=== PATIENT | male | born 1940 | race Caucasian/White ===

== ENCOUNTER 2019-09-01 20:59 | Inpatient (IN) | payer MEDICARE, BC ==
[~2019-09-01] VITALS: Ht 172.7 cm; Wt 64.1 kg
[2019-09-01 22:14] LABS: BASO % 0 % (0-3); EOS # 0.2 x10^3/uL (0.0-0.7); EOS % 1 % (0-3); HEMATOCRIT 40.1 % (39.0-53.0); HEMOGLOBIN 12.9 g/dL (13.0-17.5); LYMPH # 0.8 x10^3/uL (1.0-4.8); LYMPH % 5 % (24-48); MEAN CORPUSCULAR HEMOGLOBIN 29 pg (25-35); MEAN CORPUSCULAR HGB CONC 32 g/dL (31-37); MEAN CORPUSCULAR VOLUME 90 fL (79-100); MONO # 1.5 x10^3/uL (0.0-1.1); MONO % 10 % (0-9); NEUT % 84 % (31-73); PLATELET COUNT 354 x10^3/uL (140-400); RED BLOOD COUNT 4.44 x10^6/uL (4.30-5.70); RED CELL DISTRIBUTION WIDTH 16.6 % (11.5-14.5); WHITE BLOOD COUNT 15.5 x10^3/uL (4.0-11.0)
--- NOTE | 2019-09-01 22:26 | PHYS DOC ---
Past History Past Medical History: Cancer, Renal Failure, Other Additional Past Medical Histor: RECTAL CA Past Surgical History: Other Additional Past Surgical Histo: FOR RECTAL CA, ILEOSTOMY IN PLACE Alcohol Use: Sober Adult General Chief Complaint Chief Complaint: SHORTNESS OF BREATH [facility] HPI 79-year-old male presents with shortness of breath and decreased exercise tolerance. The patient is feeling "winded" for about the last 2 weeks. He assumed he was just coming down with some kind of illness and that it would get better. He continues to get very fatigued with exertion. If he walks 50 feet he is very winded. He denies any chest pain or diaphoresis. He now has some decreased appetite and he is concerned about this. He's lost a little bit of weight. The only medication he is on his Flomax. He denies fever or chills. Review of Systems Review of Systems Constitutional: .Denies fever or chills [] Eyes: Denies change in visual acuity, redness, or eye pain [] HENT: Denies nasal congestion or sore throat [] Respiratory: shortness of breath [] Cardiovascular: No additional information not addressed in HPI [] GI: Denies abdominal pain, nausea, vomiting, bloody stools or diarrhea [] : Denies dysuria or hematuria [] Musculoskeletal: Denies back pain or joint pain [] Integument: Denies rash or skin lesions [] Neurologic: Denies headache, focal weakness or sensory changes [] Endocrine: Denies polyuria or polydipsia [] All other systems were reviewed and found to be within normal limits, except as documented in this note. Allergies Allergies Allergies Coded Allergies Type Severity Reaction Last Updated Verified Penicillins Allergy Unknown 09/01/19 Yes Physical Exam Physical Exam Constitutional: Well developed, well nourished, no acute distress, non-toxic appearance. [] HENT: Heart appearing. Normocephalic, atraumatic, bilateral external ears normal, oropharynx moist, no oral exudates, nose normal. [] Eyes: PERRLA, EOMI, conjunctiva normal, no discharge. [] Neck: Normal range of motion, no tenderness, supple, no stridor. [] Cardiovascular:Heart rate regular rhythm, no murmur [] Lungs & Thorax: Bilateral breath sounds diminished but clear to auscultation [] Abdomen: Bowel sounds normal, soft, no tenderness, no masses, no pulsatile masses. [] Skin: Warm, dry, no erythema, no rash. [] Back: No tenderness, no CVA tenderness. [] Extremities: No tenderness, no cyanosis, no clubbing, ROM intact, no edema. [] Neurologic: Alert and oriented X 3, normal motor function, normal sensory function, no focal deficits noted. [] Psychologic: Affect normal, judgement normal, mood normal. [] Current Patient Data Vital Signs Vital Signs Date Time Temp Pulse Resp B/P (MAP) Pulse Ox O2 Delivery O2 Flow Rate FiO2 09/01/19 21:35 98.2 56 20 118/52 (74) 100 Room Air Lab Results Laboratory Tests Test 09/01/19 22:00 White Blood Count 15.5 x10^3/uL (4.0-11.0) H Red Blood Count 4.44 x10^6/uL (4.30-5.70) Hemoglobin 12.9 g/dL (13.0-17.5) L Hematocrit 40.1 % (39.0-53.0) Mean Corpuscular Volume 90 fL (79-100) Mean Corpuscular Hemoglobin 29 pg (25-35) Mean Corpuscular Hemoglobin Concent 32 g/dL (31-37) Red Cell Distribution Width 16.6 % (11.5-14.5) H Platelet Count 354 x10^3/uL (140-400) Neutrophils (%) (Auto) 84 % (31-73) H Lymphocytes (%) (Auto) 5 % (24-48) L Monocytes (%) (Auto) 10 % (0-9) H Eosinophils (%) (Auto) 1 % (0-3) Basophils (%) (Auto) 0 % (0-3) Neutrophils # (Auto) 13.0 x10^3uL (1.8-7.7) H Lymphocytes # (Auto) 0.8 x10^3/uL (1.0-4.8) L Monocytes # (Auto) 1.5 x10^3/uL (0.0-1.1) H Eosinophils # (Auto) 0.2 x10^3/uL (0.0-0.7) Basophils # (Auto) 0.0 x10^3/uL (0.0-0.2) Platelet Estimate Pending EKG EKG Regular rhythm, rate 53, some P waves, prolonged NV interval, no ST elevations or depressions.[] Radiology/Procedures Radiology/Procedures [] Impressions: Exam: Chest one view INDICATION: Shortness of breath TECHNIQUE: Frontal view of the chest Comparisons: None FINDINGS: The cardiomediastinal silhouette and pulmonary vessels are within normal limits. Patchy left basilar airspace disease. No pleural effusion. IMPRESSION: Patchy left basilar airspace disease, may represent atelectasis or developing consolidation. Electronically signed by: Jan Perez MD (09/01/2019 10:44 PM) [id number] DICTATED AND SIGNED BY: JAN PEREZ MD DATE: 09/01/192243 CC: SANDHYA JULIAN DO; AMANDA SMALL MD ~ Course & Med Decision Making Course & Med Decision Making Pertinent Labs and Imaging studies reviewed. (See chart for details) The patient's chest x-ray suggestive of pneumonia. His proBNP is over 5000. This could be fluid overload or pneumonia. He has an elevated anion gap but a low CO2. I will treat him with azithromycin and Rocephin. The patient's chart says he is allergic penicillin, but the patient and his family deny this. He has had adverse reaction to aspirin in the past. I spoke with Dr. Hernandez and he has accepted the patient for admission. [] Dragon Disclaimer Dragon Disclaimer This electronic medical record was generated, in whole or in part, using a voice recognition dictation system. Departure Departure: Impression: Primary Impression: Pneumonia Additional Impressions: CHF (congestive heart failure) CKD (chronic kidney disease) stage 4, GFR 15-29 ml/min Disposition: ADMITTED INPATIENT Admitting Physician: Fletcher Hernandez Condition: STABLE Referrals: AMANDA SMALL MD (PCP) Problem Qualifiers Primary Impression: Pneumonia Pneumonia type: due to unspecified organism Laterality: left Lung location: lower lobe of lung Qualified Codes: J18.9 - Pneumonia, unspecified organism Additional Impressions: CHF (congestive heart failure) Heart failure type: systolic Heart failure chronicity: acute Qualified Codes: I50.21 - Acute systolic (congestive) heart failure SANDHYA JULIAN DO Sep 01, 2019 22:26
[2019-09-01 22:35] LABS: ALBUMIN 3.5 g/dL (3.4-5.0); CALCIUM 6.2 mg/dL (8.5-10.1); GFR 11.2; POTASSIUM 3.5 mmol/L (3.5-5.1); TOTAL BILIRUBIN 0.2 mg/dL (0.2-1.0); TOTAL PROTEIN 7.1 g/dL (6.4-8.2)
[2019-09-01 22:43] LABS: % BANDS 10 % (0-9); % EOS 2 % (0-5); % LYMPHS 7 % (24-48); % METAS 2 % (0-0); % MONOS 13 % (0-10); % SEGS 66 % (35-66)
[2019-09-01 22:44] LABS: PLT ESTIMATE ADEQUATE (ADEQUATE)
[2019-09-01 22:45] LABS: ANISOCYTOSIS SLIGHT; OVALOCYTES FEW; POLYCHROMASIA SLIGHT; TOXIC GRANULATION MOD
--- NOTE | 2019-09-01 22:47 | RAD ---
Exam: Chest one view INDICATION: Shortness of breath TECHNIQUE: Frontal view of the chest Comparisons: None FINDINGS: The cardiomediastinal silhouette and pulmonary vessels are within normal limits. Patchy left basilar airspace disease. No pleural effusion. IMPRESSION: Patchy left basilar airspace disease, may represent atelectasis or developing consolidation. Electronically signed by: Jan Sheppard MD (09/01/2019 10:44 PM) [id number]
[2019-09-01] MEDS ORDERED: AZITHROMYCIN 500 MG in IV NORMAL SALINE 250ML 250 ML IV ONE (23:00)
[2019-09-01] MEDS ORDERED: cefTRIAXone SODIUM 1 GM VIAL ONE (23:15)
[2019-09-01] MEDS ORDERED: IV NORMAL SALINE 50ML 50 ML ONE (23:15)
[2019-09-01] MEDS ORDERED: AZITHROMYCIN 500 MG VIAL. IV ONE (23:52)
[2019-09-01] MEDS ORDERED: IV NORMAL SALINE 250ML 250 ML ONE (23:52)
[2019-09-02] VITALS (7 sets, daily range): BP systolic 111–141; BP diastolic 54–72
[2019-09-02] MEDS ORDERED: ONDANSETRON PF 4 MG/2 ML VIAL. IV PRN
[2019-09-02] MEDS ORDERED: TAMS0.4C97 PO (02:36)
[2019-09-02 04:09] LABS: BILIRUBIN,URINE NEG (NEG); CLARITY,URINE HAZY; COLOR,URINE YELLOW; GLUCOSE,URINE NEG (NEG)
[2019-09-02 04:10] LABS: NITRITE,URINE NEG (NEG); UROBILINOGEN,URINE 0.2 mg/dL (0.2 mg/dL)
--- NOTE | 2019-09-02 06:26 | EKG ---
[address] [address] Test Date: 2019-09-01 Test Time: 22:19:08 Pat Name: LANRE VALIENTE Department: Room: Gender: M Databases Computer Consultant: : 1940 Requested By: SANDHYA JULIAN Order Number: [id number] Reading MD: Measurements Intervals [place] Rate: 53 P: MD: QRS: -47 QRSD: 114 T: 125 QT: 458 QTc: 432 Interpretive Statements IRREGULAR RHYTHM, NO P-WAVE FOUND ABNORMAL LEFT AXIS DEVIATION LEFT ANTERIOR FASCICULAR BLOCK LVH WITH REPOLARIZATION ABNORMALITY ABNORMAL ECG RI6.01 No previous ECG available for comparison
[2019-09-02 08:13] LABS: BASO % 0 % (0-3); EOS # 0.2 x10^3/uL (0.0-0.7); EOS % 1 % (0-3); HEMATOCRIT 39.2 % (39.0-53.0); HEMOGLOBIN 12.6 g/dL (13.0-17.5); LYMPH # 0.8 x10^3/uL (1.0-4.8); LYMPH % 6 % (24-48); MEAN CORPUSCULAR HEMOGLOBIN 29 pg (25-35); MEAN CORPUSCULAR HGB CONC 32 g/dL (31-37); MEAN CORPUSCULAR VOLUME 90 fL (79-100); MONO # 1.2 x10^3/uL (0.0-1.1); MONO % 9 % (0-9); NEUT # 11.6 x10^3uL (1.8-7.7); NEUT % 84 % (31-73); PLATELET COUNT 355 x10^3/uL (140-400); RED BLOOD COUNT 4.37 x10^6/uL (4.30-5.70); RED CELL DISTRIBUTION WIDTH 16.1 % (11.5-14.5); WHITE BLOOD COUNT 13.9 x10^3/uL (4.0-11.0)
[2019-09-02 08:30] LABS: ALBUMIN 3.1 g/dL (3.4-5.0); ALBUMIN/GLOBULIN RATIO 0.8 (1.0-1.7); CALCIUM 6.3 mg/dL (8.5-10.1); CREATININE 4.7 mg/dL (0.7-1.3); POTASSIUM 3.2 mmol/L (3.5-5.1); TOTAL BILIRUBIN 0.4 mg/dL (0.2-1.0)
[2019-09-02] MEDS: IV NORMAL SALINE 1,000ML 1,000 ML IV SCH ×2 (11:38→20:51)
[2019-09-02] MEDS ORDERED: POTASSIUM CHLORIDE 20 MEQ TABLET.ER. PO ONE (11:40)
--- NOTE | 2019-09-02 18:24 | HP ---
ADMIT DATE: 09/01/2019 HISTORY OF PRESENT ILLNESS: The patient is an 79-year-old male patient who came to the Emergency Room with a complaint of shortness of breath and decreased exercise tolerance. The patient is feeling winded for about the last 2 weeks, assuming that he has just coming down with some kind of illness and that it would get better. He continues to get very fatigued with exertion. He walks 50 feet, he is very winded. He denies any chest pain or diaphoresis. He now has some decreased appetite and he is concerned about this. He has lost a little bit of weight. The only he is on is Flomax. He denies any fever or chills. He was evaluated in the Emergency Room and his chest x-ray showed he has patchy left basilar airspace disease with no pleural effusion. His EKG showed that he was in sinus rhythm with a heart rate of 53 beats with some P waves, prolonged OR interval, no ST segment elevation. His lab work showed that his white cell count was high at 15,500; however, his chemistry showed that he has high anion gap acidosis with a BUN of 68, creatinine 5, his estimated GFR was 11 mL per minute, his glucose 101, calcium was low at 6.2. He was admitted and was treated for community-acquired pneumonia as well as probably acute on chronic kidney injury. PAST MEDICAL HISTORY: Significant for chronic kidney disease, benign prostatic hypertrophy, colon cancer diagnosed in 2006 for which he underwent total colectomy and ileostomy. PAST SURGICAL HISTORY: Significant for total colectomy and ileostomy, cholecystectomy, colonoscopy, bilateral cataract extraction, transurethral resection of the prostate. ALLERGIES: HE IS ALLERGIC TO PENICILLIN. MEDICATIONS: He is currently on Flomax and tramadol. FAMILY HISTORY: His father at the age of 87 because of colon cancer. His mother at 86, the cause of is unknown. SOCIAL HISTORY: He is and lives with his . He quit smoking years ago. He does not drink alcohol or use recreational drugs. 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 REVIEW OF SYSTEMS: The patient denied any blurring of vision. He has bilateral cataract extraction, but denied any glaucoma or macular degeneration. He has bilateral sensorineural deafness and he has bilateral hearing aid. Denied any nosebleeds, stuffy nose or postnasal drip. Denied any sore throat, sore tongue, toothache, hoarseness of voice or difficulty swallowing. He did say that he lost unintentionally about 6-8 pounds. His appetite is poor. He denied any nausea or vomiting. Denied any hematemesis, melena or hematochezia. Denied any dysuria, frequency or hematuria. Denied any chest pain. Did complain of shortness of breath, but denied any orthopnea or paroxysmal nocturnal dyspnea. He has cough with whitish sputum. Denied any dizziness, lightheadedness or vertigo. PHYSICAL EXAMINATION: GENERAL: On arrival to the Emergency Room, the patient was clearly tachypneic, but no pallor, jaundice, cyanosis or thyromegaly. No jugular venous distention. No lower limb edema. VITAL SIGNS: His heart rate was 56, blood pressure 118/52, temperature was 98.2, respiratory rate was 20 and oxygen saturation was 100% on room air. HEAD, EYES, EARS, NOSE AND THROAT: Showed normocephalic, atraumatic. NECK: Supple. HEART: Showed normal first and second heart sounds. No gallop or murmur. CHEST: Clear to auscultation. No crepitation or rhonchi. ABDOMEN: Distended, soft, nontender. NEUROLOGIC: He was hard of hearing, but otherwise all cranial nerves intact. EXTREMITIES: He moves extremities without difficulty. LABORATORY DATA: His lab work on arrival showed that his white cell count was 15,500, hemoglobin 12.9, hematocrit 40, MCV 90 and platelet count 354,000 with normal manual differential. His chemistry showed a serum sodium 139, potassium 3.5, chloride 106, bicarbonate 12, anion gap of 21, BUN of 68, creatinine 5, estimated GFR was 11 mL per minute. His glucose was 101, calcium was 6.2. Lactic acid was 1.4. Total bilirubin, AST, ALT were normal. Alkaline phosphatase slightly elevated. His beta natriuretic peptide was 6443. Total protein was 7.1, albumin was 3.5. His urinalysis showed the urine was yellow, hazy with a pH of 6, specific gravity of 1.030. There was large amount of protein. The urine was negative for glucose, ketones, blood, nitrite, bilirubin and trace of leukocyte esterase. His chest x-ray showed the patient has patchy left basilar airspace disease, no pleural effusion. ASSESSMENT AND PLAN: The patient was admitted with obviously shortness of breath and treated with antibiotic for community-acquired pneumonia. He has chronic kidney disease, stage 4, probably more than that, he was started on intravenous fluid as well as Zithromax and ceftriaxone. LÓPEZ SILVA MD DR: KRISTAL/ronald JOB#: [id number] / [id number]
[2019-09-02] MEDS: SODIUM BICARBONATE 650 MG TABLET PO SCH (20:51)
[2019-09-02] MEDS ORDERED: AZITHROMYCIN 250 MG TABLET. PO SCH (21:00)
--- NOTE | 2019-09-02 21:06 | PN ---
DATE: 09/02/2019 SUBJECTIVE: The patient is continued to be complaining of shortness of breath, but denied any orthopnea or paroxysmal nocturnal dyspnea. He is clearly acidotic. His bicarbonate is only 12 and anion gap is 20. Despite the IV fluids he received, he continues to be acidotic and I had a lengthy discussion with him and his family probably he has end-stage renal disease and he probably needs to be dialyzed. He has high anion gap metabolic acidosis. He has lost weight. He has poor appetite. He is very weak and tired. PLAN: My plan is to start him on sodium bicarbonate. We will repeat his lab work again tomorrow and check also serum phosphorus. I have explained to him and family the options of peritoneal dialysis and hemodialysis and obviously, he has to make a decision soon as he has been suffering this for months according to his family. LÓPEZ SILVA MD DR: KRISTAL/ronald JOB#: [id number] / [id number]
[2019-09-03 01:35] VITALS: BP 105/56
[2019-09-03 04:40] VITALS: BP 106/54
[2019-09-03 06:05] VITALS: BP 112/52
[2019-09-03 07:19] LABS: ALBUMIN 2.6 g/dL (3.4-5.0); ALBUMIN/GLOBULIN RATIO 0.7 (1.0-1.7); CREATININE 4.1 mg/dL (0.7-1.3); GFR 14.1; PHOSPHORUS 5.5 mg/dL (2.6-4.7); TOTAL BILIRUBIN 0.2 mg/dL (0.2-1.0); TOTAL PROTEIN 6.1 g/dL (6.4-8.2)
[2019-09-03 07:29] LABS: CALCIUM 5.7 mg/dL (8.5-10.1)
[2019-09-03] MEDS ORDERED: POTASSIUM CHLORIDE 20 MEQ TABLET.ER. PO ONE ×3 (08:15→15:00)
[2019-09-03] MEDS: CALCIUM CARBONATE 500 MG TABLET PO SCH ×3 (08:38→18:43)
[2019-09-03] MEDS: SODIUM BICARBONATE 650 MG TABLET PO SCH ×2 (08:38→13:05)
[2019-09-03 10:48] VITALS: BP 113/50
[2019-09-03 12:29] LABS: CALCIUM 6.1 mg/dL (8.5-10.1); CREATININE 3.8 mg/dL (0.7-1.3); GFR 15.4; POTASSIUM 3.2 mmol/L (3.5-5.1)
[2019-09-03] MEDS: IV NORMAL SALINE 1,000ML 1,000 ML IV SCH ×2 (12:51→15:34)
[2019-09-03 14:46] VITALS: BP 109/51
--- NOTE | 2019-09-03 21:49 | DS ---
DATE OF DISCHARGE: 09/03/2019 HOSPITAL COURSE: The patient is an 79-year-old male patient who presented to the Emergency Room with complaint of shortness of breath, decreased exercise intolerance. The patient is feeling winded for about last 2 weeks, assuming that he is just coming down with some kind of illness that it could get better. He continues to be very fatigued with exertion. He walks 50 feet and he is very winded. He denies any chest pain or diaphoresis. He also had decreased appetite, has lost weight. The only medication he is on is Flomax. He is known to have chronic kidney disease, but has not seen his automation machine operator for a long time. In the Emergency Room, he was found to have leukocytosis and his BUN was 68, his creatinine was 5 and estimated GFR only 11. He has high anion gap acidosis. Chest x-ray showed that he has bilateral lung infiltrate and was admitted with community-acquired pneumonia as well as acute on chronic kidney injury, was started on IV ceftriaxone and Zithromax as well as IV fluid. His lab work; his BUN came down from 68 to 56, his creatinine is coming down also from 5 to 3.8 and therefore given that the same complaint has been going on for almost 6 months according to his family, it seems that he is uremic with severe metabolic acidosis, we started on oral sodium bicarbonate and calcium carbonate for hypocalcemia and I have discussed with him the options available for advanced kidney disease and that he probably requires either hemodialysis or peritoneal dialysis and he and his agreed that peritoneal dialysis is probably the way to go and therefore, [facility] to consult the Nephrology as well as the surgical team for placement of peritoneal dialysis and perhaps temporary hemodialysis catheter to start dialysis temporarily and then to start training on peritoneal dialysis. PHYSICAL EXAMINATION: GENERAL: When I saw him this afternoon, he looked well and was clearly in no apparent respiratory distress. He is slightly pale, not jaundiced or cyanosed, no thyromegaly, no jugular venous distention, no limb edema. VITAL SIGNS: His heart rate was 62, blood pressure was 109/51, temperature was 97.4, respiratory rate was 20, and oxygen saturation was 99%. HEAD, EYES, EARS, NOSE AND THROAT: Showed normocephalic, atraumatic. NECK: Supple. HEART: Showed normal first and second heart sounds with no gallop or murmur. CHEST: Clear to auscultation. No crepitation or rhonchi. ABDOMEN: Distended, soft, nontender. NEUROLOGIC: He was awake, alert, responding appropriately. All cranial nerves are intact. He moves extremities without difficulty. His intake over the last 24 hours was 2350, output was 600. LABORATORY DATA: This morning showed a white cell count of 13,900, hemoglobin 12.6, hematocrit 39, MCV 90 and platelet count 355,000. Serum sodium was 138, potassium 3.2, chloride 107, bicarbonate 13, anion gap of 18, BUN 56, creatinine was 3.8, estimated GFR was 15 mL per minute. His glucose was 94, calcium was 6.1, phosphorus was 5.5. Total bilirubin, AST, ALT, alkaline phosphatase were normal. Total protein was 6.1, albumin was 2.6. Urinalysis was essentially unremarkable except for proteinuria. FINAL DISCHARGE DIAGNOSES: Acute on chronic kidney injury and high anion gap metabolic acidosis. The patient is clinically uremic, has weight loss ____ appetite, generalized weakness. LÓPEZ SILVA MD DR: KRISTAL/ronald JOB#: [id number] / [id number]
== END 2019-09-03 19:45 | disposition short-term general hospital (02) | DRG 871 ==
LOC: ER 20:59 → ICU 23:10
PROVIDERS: ADMIT Internal Medicine; ATTEND Internal Medicine
DX: A41.9 Sepsis, unspecified organism (principal); J18.9 Pneumonia, unspecified organism; N17.9 Acute kidney failure, unspecified; E87.2 Acidosis; N18.4 Chronic kidney disease, stage 4 (severe); I50.9 Heart failure, unspecified; N40.0 Benign prostatic hyperplasia without lower urinary tract symptoms; E83.51 Hypocalcemia; Z98.42 Cataract extraction status, left eye; Z98.41 Cataract extraction status, right eye; Z85.048 Personal history of other malignant neoplasm of rectum, rectosigmoid junction, and anus; Z80.0 Family history of malignant neoplasm of digestive organs; Z93.2 Ileostomy status; Z87.891 Personal history of nicotine dependence; Z88.0 Allergy status to penicillin
CPT/HCPCS: 36415; 71045; 80048; 80053; 81003; 83605; 83880; 84100; 84484; 85007; 85025; 87040; 93005; 97163; J0456; J0696; J7050; 97116; 97530; 99285-25; J7030

== ENCOUNTER → 2019-09-10 | Outpatient (CLI) | payer MEDICARE, BC ==
[2019-09-03 14:46] VITALS: BP 109/51
[~2019-09-10] MED LIST: TAMS0.4C97 PO
[2019-09-10 16:01] LABS: CALCIUM 7.2 mg/dL (8.5-10.1); CREATININE 3.5 mg/dL (0.7-1.3); GFR 16.9; POTASSIUM 3.4 mmol/L (3.5-5.1)
== END ==
LOC: SPEC 15:37
PROVIDERS: ATTEND Internal Medicine
DX: E87.6 Hypokalemia (principal); E83.42 Hypomagnesemia
CPT/HCPCS: 36415; 80048; 83735

== ENCOUNTER → 2019-09-12 | Outpatient (CLI) | payer MEDICARE, BC ==
[2019-09-03 14:46] VITALS: BP 109/51
[2019-09-12 10:26] LABS: CALCIUM 7.6 mg/dL (8.5-10.1); CREATININE 3.8 mg/dL (0.7-1.3); GFR 15.4; POTASSIUM 3.8 mmol/L (3.5-5.1)
== END ==
LOC: SPEC 09:49
PROVIDERS: ATTEND Internal Medicine
DX: E87.6 Hypokalemia (principal); E83.42 Hypomagnesemia; N19 Unspecified kidney failure
CPT/HCPCS: 36415; 80048; 83735

== ENCOUNTER → 2019-09-15 | Outpatient (CLI) | payer MEDICARE, BC ==
[2019-09-03 14:46] VITALS: BP 109/51
[2019-09-15 10:15] LABS: CALCIUM 7.5 mg/dL (8.5-10.1); CREATININE 4.2 mg/dL (0.7-1.3); GFR 13.7; MAGNESIUM 2.1 mg/dL (1.8-2.4); POTASSIUM 4.9 mmol/L (3.5-5.1)
== END | disposition home or self-care (01) ==
LOC: SPEC 09:55
PROVIDERS: ATTEND Internal Medicine
DX: I10 Essential (primary) hypertension (principal); E87.6 Hypokalemia; E83.51 Hypocalcemia; E83.42 Hypomagnesemia
CPT/HCPCS: 36415; 80048; 83735

== ENCOUNTER → 2019-09-17 | Outpatient (CLI) | payer MEDICARE, BC ==
[2019-09-03 14:46] VITALS: BP 109/51
[2019-09-17 09:39] LABS: CALCIUM 6.9 mg/dL (8.5-10.1); CREATININE 4.2 mg/dL (0.7-1.3); GFR 13.7; POTASSIUM 3.8 mmol/L (3.5-5.1)
== END | disposition home or self-care (01) ==
LOC: SPEC 09:21
PROVIDERS: ATTEND Internal Medicine
DX: N17.9 Acute kidney failure, unspecified (principal); E83.51 Hypocalcemia; E87.6 Hypokalemia
CPT/HCPCS: 36415; 80048; 83735

== ENCOUNTER → 2019-09-19 | Outpatient (CLI) | payer MEDICARE, BC ==
[2019-09-03 14:46] VITALS: BP 109/51
[2019-09-19 10:04] LABS: CALCIUM 6.7 mg/dL (8.5-10.1); GFR 14.5; MAGNESIUM 2.1 mg/dL (1.8-2.4); POTASSIUM 3.8 mmol/L (3.5-5.1)
== END | disposition home or self-care (01) ==
LOC: SPEC 09:44
PROVIDERS: ATTEND Internal Medicine
DX: N17.9 Acute kidney failure, unspecified (principal); E83.51 Hypocalcemia; E87.6 Hypokalemia
CPT/HCPCS: 36415; 80048; 83735

== ENCOUNTER 2019-11-22 13:32 | Emergency (ER) | payer MEDICARE, BC ==
[~2019-11-22] VITALS: Ht 172.7 cm; Wt 76.0 kg
[2019-11-22 14:11] LABS: BASO % 0 % (0-3); EOS % 0 % (0-3); HEMATOCRIT 35.1 % (39.0-53.0); HEMOGLOBIN 11.6 g/dL (13.0-17.5); LYMPH # 0.6 x10^3/uL (1.0-4.8); LYMPH % 7 % (24-48); MEAN CORPUSCULAR HEMOGLOBIN 30 pg (25-35); MEAN CORPUSCULAR HGB CONC 33 g/dL (31-37); MEAN CORPUSCULAR VOLUME 90 fL (79-100); MONO # 0.9 x10^3/uL (0.0-1.1); MONO % 10 % (0-9); NEUT # 7.7 x10^3uL (1.8-7.7); NEUT % 83 % (31-73); PLATELET COUNT 313 x10^3/uL (140-400); RED CELL DISTRIBUTION WIDTH 14.3 % (11.5-14.5); WHITE BLOOD COUNT 9.2 x10^3/uL (4.0-11.0)
[2019-11-22 14:17] LABS: ANION GAP 12 (6-14); BLOOD UREA NITROGEN 43 mg/dL (8-26); BUN/CREATININE RATIO 12 (6-20); CALCIUM 8.1 mg/dL (8.5-10.1); CARBON DIOXIDE 28 mmol/L (21-32); CHLORIDE 100 mmol/L (98-107); CREATININE 3.5 mg/dL (0.7-1.3); GFR 16.9; GLUCOSE 123 mg/dL (70-99); POTASSIUM 3.4 mmol/L (3.5-5.1); SODIUM 140 mmol/L (136-145)
--- NOTE | 2019-11-22 14:24 | RAD ---
CHEST AP ONLY History: Shortness of air Comparison: 09/01/2019 Findings: AP portable view of the chest is submitted. There is a small left pleural effusion, also very small right pleural effusion. There is bibasilar airspace opacity adjacent to the effusions, left greater than right. No pneumothorax is identified. Catheter projecting over the right inferior neck is believed to be external to patient. Pericardial cardiac silhouette is somewhat enlarged although unchanged. Impression: 1. There are left greater than right pleural effusions with adjacent bibasilar airspace opacity which may be due to edema/atelectasis although infiltrates not excluded. Constellation of findings could be due to left ventricular failure. Electronically signed by: Angel Pritchett MD (11/22/2019 2:21 PM) [id number]
[2019-11-22 14:29] LABS: ALBUMIN 3.3 g/dL (3.4-5.0); ALBUMIN/GLOBULIN RATIO 0.9 (1.0-1.7); ALK PHOS 116 U/L (46-116); ALT (SGPT) 40 U/L (16-63); AST (SGOT) 23 U/L (15-37); TOTAL BILIRUBIN 0.8 mg/dL (0.2-1.0); TOTAL PROTEIN 7.1 g/dL (6.4-8.2)
--- NOTE | 2019-11-22 15:24 | PHYS DOC ---
Past History Past Medical History: Cancer, CHF, Pneumonia, Renal Failure, Other Additional Past Medical Histor: RECTAL CA Past Surgical History: Other Additional Past Surgical Histo: FOR RECTAL CA, ILEOSTOMY IN PLACE Alcohol Use: Sober General Adult EDM: Chief Complaint: MULTIPLE COMPLAINTS HPI: HPI: Patient is an 79-year-old male with multiple medical problems including chronic renal failure who presents to the emergency department today with a several day history of progressive lightheadedness and feeling washed out he states the last time he felt like this he was in renal failure. Patient also states that he has been having shortness of breath dyspnea on exertion he is not making much urine. [] Review of Systems: Review of Systems: Constitutional: Denies fever or chills Eyes: Denies change in visual acuity HENT: Denies nasal congestion or sore throat Respiratory: Denies cough or shortness of breath Cardiovascular: Denies chest pain or edema GI: Denies abdominal pain, nausea, vomiting, bloody stools or diarrhea : D states he does not make much urine Musculoskeletal: Denies back pain or joint pain Integument: Denies rash Neurologic: Denies headache, focal weakness or sensory changes Endocrine: Denies polyuria or polydipsia Lymphatic: Denies swollen glands Psychiatric: Reports anxiety Heart Score: Risk Factors: Risk Factors: DM, Current or recent (<one month) smoker, HTN, HLP, family history of CAD, obesity. Risk Scores: Score 0 - 3: 2.5% MACE over next 6 weeks - Discharge Home Score 4 - 6: 20.3% MACE over next 6 weeks - Admit for Clinical Observation Score 7 - 10: 72.7% MACE over next 6 weeks - Early Invasive Strategies Allergies: Allergies: Allergies Coded Allergies Type Severity Reaction Last Updated Verified Penicillins Allergy Unknown 09/01/19 Yes Physical Exam: PE: Constitutional: Well developed, well nourished, no acute distress, non-toxic appearance. [] HENT: Normocephalic, atraumatic, bilateral external ears normal, oropharynx moist, no oral exudates, nose normal. [] Eyes: PERRLA, EOMI, conjunctiva normal, no discharge. [] Neck: Normal range of motion, no tenderness, supple, no stridor. [] Cardiovascular:Heart rate regular rhythm, no murmur [] Lungs & Thorax: Bilateral breath sounds clear to auscultation [] Abdomen: Bowel sounds normal, soft, no tenderness, no masses, no pulsatile masses. [] Skin: Warm, dry, no erythema, no rash. [] Back: No tenderness, no CVA tenderness. [] Extremities: No tenderness, no cyanosis, no clubbing, ROM intact, no edema. [] Neurologic: Alert and oriented X 3, normal motor function, normal sensory function, no focal deficits noted. [] Psychologic: Affect normal, judgement normal, mood normal. [] Current Patient Data: Labs: Laboratory Tests Test 11/22/19 13:50 White Blood Count 9.2 x10^3/uL (4.0-11.0) Red Blood Count 3.90 x10^6/uL (4.30-5.70) L Hemoglobin 11.6 g/dL (13.0-17.5) L Hematocrit 35.1 % (39.0-53.0) L Mean Corpuscular Volume 90 fL (79-100) Mean Corpuscular Hemoglobin 30 pg (25-35) Mean Corpuscular Hemoglobin Concent 33 g/dL (31-37) Red Cell Distribution Width 14.3 % (11.5-14.5) Platelet Count 313 x10^3/uL (140-400) Neutrophils (%) (Auto) 83 % (31-73) H Lymphocytes (%) (Auto) 7 % (24-48) L Monocytes (%) (Auto) 10 % (0-9) H Eosinophils (%) (Auto) 0 % (0-3) Basophils (%) (Auto) 0 % (0-3) Neutrophils # (Auto) 7.7 x10^3uL (1.8-7.7) Lymphocytes # (Auto) 0.6 x10^3/uL (1.0-4.8) L Monocytes # (Auto) 0.9 x10^3/uL (0.0-1.1) Eosinophils # (Auto) 0.0 x10^3/uL (0.0-0.7) Basophils # (Auto) 0.0 x10^3/uL (0.0-0.2) Sodium Level 140 mmol/L (136-145) Potassium Level 3.4 mmol/L (3.5-5.1) L Chloride Level 100 mmol/L (98-107) Carbon Dioxide Level 28 mmol/L (21-32) Anion Gap 12 (6-14) Blood Urea Nitrogen 43 mg/dL (8-26) H Creatinine 3.5 mg/dL (0.7-1.3) H Estimated GFR (Cockcroft-Gault) 16.9 BUN/Creatinine Ratio 12 (6-20) Glucose Level 123 mg/dL (70-99) H Calcium Level 8.1 mg/dL (8.5-10.1) L Total Bilirubin 0.8 mg/dL (0.2-1.0) Aspartate Amino Transferase (AST) 23 U/L (15-37) Alanine Aminotransferase (ALT) 40 U/L (16-63) Alkaline Phosphatase 116 U/L (46-116) Troponin I Quantitative 0.128 ng/mL (0-0.055) H AO-Pgj-P-Type Natriuretic Peptide > 99599 pg/mL (0-449) H Total Protein 7.1 g/dL (6.4-8.2) Albumin 3.3 g/dL (3.4-5.0) L Albumin/Globulin Ratio 0.9 (1.0-1.7) L Vital Signs: Vital Signs Date Time Temp Pulse Resp B/P (MAP) Pulse Ox O2 Delivery O2 Flow Rate FiO2 11/22/19 13:32 97.5 63 30 145/81 (102) 96 Room Air EKG: EKG: EKG: Normal sinus rhythm rate of [address]-T changes there is some repull abnormalities [] Radiology/Procedures: Radiology/Procedures: [] Impressions: PROCEDURE: CHEST AP ONLY CHEST AP ONLY History: Shortness of air Comparison: 09/01/2019 Findings: AP portable view of the chest is submitted. There is a small left pleural effusion, also very small right pleural effusion. There is bibasilar airspace opacity adjacent to the effusions, left greater than right. No pneumothorax is identified. Catheter projecting over the right inferior neck is believed to be external to patient. Pericardial cardiac silhouette is somewhat enlarged although unchanged. Impression: 1. There are left greater than right pleural effusions with adjacent bibasilar airspace opacity which may be due to edema/atelectasis although infiltrates not excluded. Constellation of findings could be due to left ventricular failure. Course & Med Decision Making: Course & Med Decision Making Pertinent Labs and Imaging studies reviewed. (See chart for details) [] Dragon Disclaimer: Dragon Disclaimer: This electronic medical record was generated, in whole or in part, using a voice recognition dictation system. Departure Departure: Impression: Primary Impression: Congestive heart failure Qualified Codes: I50.43 - Acute on chronic combined systolic (congestive) and diastolic (congestive) heart failure Additional Impression: Chronic renal failure, stage 4 (severe) Disposition: HOME/RESIDENCE PRIOR TO ADM Condition: STABLE Referrals: AMANDA SMALL MD (PCP) KRYSTIN BINGHAM DO November 22, 2019 15:24
[2019-11-22 15:25] LABS: CLARITY,URINE CLEAR; COLOR,URINE STRAW; GLUCOSE,URINE NEG (NEG)
[2019-11-22 15:26] LABS: BILIRUBIN,URINE NEG (NEG); UROBILINOGEN,URINE 0.2 mg/dL (0.2 mg/dL)
[2019-11-22 15:27] LABS: NITRITE,URINE NEG (NEG)
[2019-11-22 15:31] LABS: BACTERIA,URINE 0 /HPF (0-FEW); WBC,URINE 0 /HPF (0-4)
[2019-11-22] MEDS ORDERED: FUROSEMIDE 40 MG/4 ML VIAL IVP ONE (15:45)
[2019-11-22 17:08] VITALS: BP 165/65
--- NOTE | 2019-11-24 07:11 | EKG ---
[address] [address] Test Date: 2019-11-22 Test Time: 13:38:51 Pat Name: LANRE VALIENTE Department: Room: Gender: Telehealth Nurse Educator: : 1940 Requested By: KRYSTIN BINGHAM Order Number: [id number] Reading MD: Manny Ribera MD Measurements Intervals [place] Rate: P: TX: QRS: QRSD: T: QT: QTc: Interpretive Statements PROBABLE ATRIAL FIBRILLATION Electronically Signed On 11-24-2019 9:22:19 CDT by Manny Ribera MD
== END 2019-11-22 18:15 | disposition short-term general hospital (02) ==
LOC: ER 13:32
DX: I50.43 Acute on chronic combined systolic (congestive) and diastolic (congestive) heart failure (principal); N18.4 Chronic kidney disease, stage 4 (severe); Z88.0 Allergy status to penicillin
CPT/HCPCS: 36415; 71045; 80053; 81001; 83880; 84484; 85025; 93005; 96374; 99285; J1940

== ENCOUNTER → 2021-04-22 | Outpatient (CLI) | payer MEDICARE, BC ==
--- NOTE | 2021-04-22 17:39 | RAD ---
EXAM: Bilateral knees, 4 views. HISTORY: Pain. Fall. COMPARISON: None. FINDINGS: 4 views of both knees are obtained. There is a mildly displaced fracture of the mid left pa tella. There is associated moderate left lipohemarthrosis. There is mild left greater than right medi al compartment joint space narrowing. There is no suspicious osseous lesion. There are vascular calci fications. IMPRESSION: 1. Mildly displaced left patellar fracture with moderate lipohemarthrosis. 2. 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 Electronically signed by: Kylie Wang MD (04/22/2021 5:36 PM) [facility]
== END ==
LOC: DXRAD 16:54
PROVIDERS: ATTEND Internal Medicine
DX: S82.092A Other fracture of left patella, initial encounter for closed fracture (principal); M17.0 Bilateral primary osteoarthritis of knee; W19.XXXA Unspecified fall, initial encounter; Y93.89 Activity, other specified; Y92.89 Other specified places as the place of occurrence of the external cause; Y99.8 Other external cause status
CPT/HCPCS: 73564-50

== ENCOUNTER 2021-06-01 11:38 | Emergency (ER) | payer MEDICARE, BC ==
[~2021-06-01] VITALS: Ht 172.7 cm; Wt 76.0 kg
--- NOTE | 2021-06-01 11:40 | PHYS DOC ---
Past History Past Medical History: Cancer, CHF, Pneumonia, Renal Failure, Other Additional Past Medical Histor: RECTAL CA Past Surgical History: Other Additional Past Surgical Histo: FOR RECTAL CA, ILEOSTOMY IN PLACE Alcohol Use: Sober General Adult HPI: HPI: Patient is an 81-year-old male brought in by EMS from [facility] for hypotension and drowsiness. He normally has relatively low blood pressure at baseline, usually in the high 80s to 90 systolic. At [facility], he reportedly had systolic blood pressures in the 60s. EMS corroborates this. They brought him here and could not establish IV access. IV access was established shortly after arrival. The patient has pinpoint pupils, it seems drowsy and is confused. The patient is initially unable to provide much of a history. The patient is given Narcan shortly after arrival, and he woke up quickly and immediately. His blood pressure improved. He is given fluid boluses. His blood pressure improved and stabilized significantly. The patient reports that he had been having some left knee pain, since he was hospitalized for a left patella fracture. I spoke with the patient's nurse at his care facility, and she reports that he just arrived back there yesterday after 2 PM. He had been receiving some hydrocodone while hospitalized, in addition to tramadol. He takes tramadol at baseline. She has noticed that he was sleepy and seemed less responsive while taking both of these medicines. He did not receive any opioids this morning, the it is possible he received some last night or yesterday prior to his arrival. She reports that he got up and ate a small amount of breakfast, had some relative hypotension, as per usual. He took his regular dose of midodrine, and then went to dialysis. Upon awakening, the patient has no complaints other than feeling cold. He denies chest pain, dyspnea, dizziness, headache, nausea vomiting, abdominal pain. He does report some left knee pain, but this is unchanged and no worse t mcbride usual for him. Review of Systems: Review of Systems: Constitutional: Denies fever or chills Eyes: Denies change in visual acuity HENT: Denies nasal congestion or sore throat Respiratory: Denies cough or shortness of breath Cardiovascular: Denies chest pain or edema GI: Denies abdominal pain, nausea, vomiting Musculoskeletal: Denies back pain. Reports unchanged left anterior knee pain from previous injury. Integument: Denies rash Neurologic: Denies headache, focal weakness or sensory changes. He was briefly altered/confused, but this is resolved after Narcan administration. Endocrine: Denies polyuria or polydipsia Lymphatic: Denies swollen glands Psychiatric: No reported acute mood changes. Allergies: Allergies: Allergies Coded Allergies Type Severity Reaction Last Updated Verified Penicillins Allergy Unknown 09/01/19 Yes Physical Exam: PE: Constitutional: Initially, he was quite sleepy, but ill-appearing. He is otherwise is well developed, well nourished, no acute distress, non-toxic appearance. He is chronically ill-appearing. HENT: Normocephalic, atraumatic, oropharynx is patent and clear. Mucous membranes slightly tacky. Eyes: Pulls are initially pinpoint but equal. No scleral icterus. No conjunctival injection. No drainage. Neck: Normal range of motion, no tenderness, supple, no stridor. Trachea midline. No meningismus. Cardiovascular:Heart rate regular rhythm, +2 radial pulses bilaterally Lungs & Thorax: Bilateral breath sounds clear to auscultation [] Abdomen: Bowel sounds normal, soft, no tenderness, no masses, no pulsatile masses. [] Skin: Warm, dry, no erythema, no rash. [] Extremities: No calf tenderness. No lower extremity edema. Left lower extremity is in a splint. Palpation of the anterior knee and calf does not elicit any tenderness. Neurologic: Initially, he is very drowsy/sleepy, awakens to voice and pain, localizes to pain, gag reflex intact, will not follow most commands. He is not oriented at all. After Narcan administration, he is awake, alert, oriented to person, place, situation. No facial asymmetry. Speech is clear and fluent. He moves all 4 extremities equally. Sensation is grossly normal. Psychologic: Affect normal, judgement normal, mood normal. [] EKG: EKG: [] Radiology/Procedures: Radiology/Procedures: IMAGING REPORT Signed PATIENT: LANRE VALIENTE ACCOUNT: [id number] : 1940 LOCATION: ER AGE: 81 SEX: M EXAM STATUS: REG ER ORD. PHYSICIAN: JONO ANGEL DO REASON: ams PROCEDURE: PORTABLE CHEST 1V EXAM: CHEST ONE VIEW. HISTORY: Altered mental status. COMPARISON: 11/22/2019. FINDINGS: A frontal view of the chest is obtained. An airspace opacity in the left base may reflect a small infiltrate or scarring. There is no pneumothorax or pleural effusion. The heart is not enlarged. IMPRESSION: 1. Small infiltrate versus scarring in the left costophrenic angle. Electronically signed by: Jennifer Laws MD (06/01/2021 12:23 PM) [id number] DICTATED AND SIGNED BY: BENJAMÍN LAWS MD DATE: 06/01/21 1222 CC: JONO ANGEL DO; AMANDA SMALL MD ~MTH0 0 IMAGING REPORT Signed PATIENT: LANRE VALIENTE ACCOUNT: [id number] : 1940 LOCATION: ER AGE: 81 SEX: M EXAM STATUS: REG ER ORD. PHYSICIAN: JONO ANGEL DO REASON: ams PROCEDURE: CT HEAD WO CONTRAST EXAM: Head CT without contrast. HISTORY: Altered mental status. TECHNIQUE: Computed tomographic images of the head were obtained without contrast. *One or more of the following individualized dose reduction techniques were utilized for this examination: 1. Automated exposure control. 2. Adjustment of the mA and/or kV according to patient size. 3. Use of iterative reconstruction technique. COMPARISON: None. FINDINGS: There is no acute or subacute extra-axial or intraparenchymal hemorrhage. There is no mass effect or midline shift. There is no hydrocephalus. There is cerebral atrophy. There are areas of hypodensity within the cerebral white matter, likely due to chronic small vessel disease. 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 There is evidence of lens surgery. There is a tiny left maxillary sinus mucous retention cyst. The mastoid air cells are clear. There is no suspicious calvarial lesion. IMPRESSION: 1. No acute intracranial finding. MRI is more sensitive for acute infarction. 2. Extensive cerebral white matter changes, likely due to chronic small vessel disease. 3. 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 4. Cerebral volume loss. Electronically signed by: Kylie Hercules MD (06/01/2021 12:12 PM) [id number] DICTATED AND SIGNED BY: KYLIE HERCULES MD DATE: 06/01/21 1209 CC: JONO ANGEL DO; AMANDA SMALL MD ~MTH0 0 Heart Score: C/O Chest Pain: No Risk Factors: Risk Factors: DM, Current or recent (<one month) smoker, HTN, HLP, family history of CAD, obesity. Risk Scores: Score 0 - 3: 2.5% MACE over next 6 weeks - Discharge Home Score 4 - 6: 20.3% MACE over next 6 weeks - Admit for Clinical Observation Score 7 - 10: 72.7% MACE over next 6 weeks - Early Invasive Strategies Course & Med Decision Making: Course & Med Decision Making Pertinent Labs and Imaging studies reviewed. (See chart for details) Patient is given a total of 2 doses of Narcan. He is given IV fluids. Blood pressure remained stable. He did have a few episodes of relative hypotension, but this was his baseline. I personally spoke with his caregiver at his care facility, and I discussed all of the findings here today. I had initially wanted the patient to return to [facility] to complete dialysis, as was scheduled this morning. The nursing staff here contacted [facility], and they reported that they would not allow him to come back for dialysis but rather reported that he could wait until Sunday. I personally contacted [facility] and spoke with 2 different nurses there, and they repeatedly told me that they would not allow him to return there for dialysis because they were closing the dialysis center 2:40 PM to allow staff to go home. Nurse reported that they would not be open tomorrow. I then asked that the drum sander offbearer be contacted, I asked for the names of the group president in order to discuss this, as nephrology would be the one ordering his scheduled dialysis. I did speak to the nurse practitioner for the patient's group president. She reports that he was dialyzed yesterday at [facility]. She spoke with the on-call attending group president, who reports that as long as the patient's potassium is normal, he may wait until Sunday. I did explain that I was concerned that he still had dialysis scheduled for today, and if it was not scheduled or warranted, this should be addressed, as should the [facility] staff's unwillingness to cooperate more congenially. She reports that she will discuss it with them. I discussed this with the patient. He reports that he is comfortable going back to his care facility and dialyzing on Sunday. He is awake, alert, has no complaints, is stable at time of plan for discharge back to his care facility. You recommend avoidance of opioids, as this likely was the culprit for his altered mental status and confusion and hypotension. Jaleesa Disclaimer: Jaleesa Disclaimer: This electronic medical record was generated, in whole or in part, using a voice recognition dictation system. Departure Departure: Impression: Primary Impression: Hypotension Qualified Codes: I95.9 - Hypotension, unspecified Additional Impressions: End stage renal disease on dialysis Altered mental status Qualified Codes: R40.0 - Somnolence Disposition: [facility] Condition: STABLE Referrals: AMANDA SMALL MD (PCP) Patient Instructions: Hypotension Additional Instructions: Your low blood pressure is likely related to not only your chronic health issues and kidney issues, but also most likely related to pain medication use. Avoid use of opioids such as hydrocodone. You might want to take a half a tablet of tramadol for severe pain instead of a full tablet, and you may take over-the-c ounter Tylenol as well. You should go to dialysis on Sunday, as scheduled. You may return to the ER immediately for chest pain, shortness of breath, vomiting, fever of 100.4 or higher, acute injury, trauma, fall, severe headache, focal weakness or any other concerns you might have. Take your regularly prescribed medicines, including your midodrine, as directed by your doctors. JONO ANGEL DO Jun 01, 2021 11:40
--- NOTE | 2021-06-01 11:59 | EKG ---
[address] [address] Test Date: 2021-06-01 Test Time: 11:47:43 Pat Name: LANRE VALIENTE Department: Room: Gender: M Fish Inspector: XANDRE : 1940 Requested By: JONO ANGEL Order Number: [id number] Reading MD: Measurements Intervals [place] Rate: 62 P: CT: QRS: -45 QRSD: 104 T: 68 QT: 444 QTc: 453 Interpretive Statements IRREGULAR RHYTHM, NO P-WAVE FOUND VENTRICULAR PREMATURE COMPLEX(ES), TRIGEMINY ABNORMAL LEFT AXIS DEVIATION LEFT ANTERIOR FASCICULAR BLOCK T ABNORMALITY IN HIGH LATERAL LEADS ABNORMAL ECG RI6.02 No previous ECG available for comparison
[2021-06-01] MEDS ORDERED: NALOXONE 0.4 MG/ML VIAL. IV ONE ×2 (12:00→14:00)
[2021-06-01] MEDS ORDERED: IV NORMAL SALINE 500ML 500 ML IV ONE ×2 (12:00→14:00)
[2021-06-01 12:13] LABS: BASO % 0 % (0-3); EOS # 0.1 x10^3/uL (0.0-0.7); EOS % 1 % (0-3); HEMOGLOBIN 12.3 g/dL (13.0-17.5); LYMPH # 1.5 x10^3/uL (1.0-4.8); LYMPH % 10 % (24-48); MEAN CORPUSCULAR HEMOGLOBIN 33 pg (25-35); MEAN CORPUSCULAR HGB CONC 32 g/dL (31-37); MEAN CORPUSCULAR VOLUME 101 fL (79-100); MONO # 1.9 x10^3/uL (0.0-1.1); MONO % 13 % (0-9); NEUT # 11.1 x10^3uL (1.8-7.7); NEUT % 76 % (31-73); PLATELET COUNT 244 x10^3/uL (140-400); RED BLOOD COUNT 3.75 x10^6/uL (4.30-5.70); RED CELL DISTRIBUTION WIDTH 15.8 % (11.5-14.5); WHITE BLOOD COUNT 14.7 x10^3/uL (4.0-11.0)
--- NOTE | 2021-06-01 12:15 | RAD ---
EXAM: Head CT without contrast. HISTORY: Altered mental status. TECHNIQUE: Computed tomographic images of the head were obtained without contrast. *One or more of the following individualized dose reduction techniques were utilized for this examina tion: 1. Automated exposure control. 2. Adjustment of the mA and/or kV according to patient size. 3. Use of iterative reconstruction technique. COMPARISON: None. FINDINGS: There is no acute or subacute extra-axial or intraparenchymal hemorrhage. There is no mass effect or midline shift. There is no hydrocephalus. There is cerebral atrophy. There are areas of hypodensity within the cerebral white matter, likely du e to chronic small vessel disease. There is a chronic infarct within the right basal ganglia and exte rnal capsule. There is evidence of lens surgery. There is a tiny left maxillary sinus mucous retention cyst. The ma stoid air cells are clear. There is no suspicious calvarial lesion. IMPRESSION: 1. No acute intracranial finding. MRI is more sensitive for acute infarction. 2. Extensive cerebral white matter changes, likely due to chronic small vessel disease. 3. 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 4. Cerebral volume loss. Electronically signed by: Kylie Wang MD (06/01/2021 12:12 PM) [id number]
[2021-06-01 12:19] LABS: CALCIUM 8.5 mg/dL (8.5-10.1); CREATININE 7.2 mg/dL (0.7-1.3); GFR 7.3; POTASSIUM 4.9 mmol/L (3.5-5.1)
--- NOTE | 2021-06-01 12:26 | RAD ---
EXAM: CHEST ONE VIEW. HISTORY: Altered mental status. COMPARISON: 11/22/2019. FINDINGS: A frontal view of the chest is obtained. An airspace opacity in the left base may reflect a small infiltrate or scarring. There is no pneumoth orax or pleural effusion. The heart is not enlarged. IMPRESSION: 1. Small infiltrate versus scarring in the left costophrenic angle. Electronically signed by: Jennifer Laws MD (06/01/2021 12:23 PM) [id number]
[2021-06-01 12:32] LABS: ALBUMIN 2.8 g/dL (3.4-5.0); ALBUMIN/GLOBULIN RATIO 0.8 (1.0-1.7); MAGNESIUM 2.2 mg/dL (1.8-2.4); PHOSPHORUS 3.5 mg/dL (2.6-4.7); TOTAL BILIRUBIN 0.5 mg/dL (0.2-1.0); TOTAL PROTEIN 6.3 g/dL (6.4-8.2)
[2021-06-01 13:07] LABS: % ATYL 6 % (0-0); % BANDS 12 % (0-9); % BASOS 1 % (0-3); % EOS 1 % (0-5); % LYMPHS 6 % (24-48); % MONOS 14 % (0-10); % MYELOS 3 % (0-0); % SEGS 57 % (35-66)
[2021-06-01 13:19] LABS: ANISOCYTOSIS PRESENT; MICROCYTOSIS PRESENT
[2021-06-01 13:21] LABS: PLT ESTIMATE ADEQUATE (ADEQUATE)
[2021-06-01 14:51] VITALS: BP 103/72
== END 2021-06-01 14:52 ==
LOC: ER 11:38
DX: I95.9 Hypotension, unspecified (principal); N18.6 End stage renal disease; R41.82 Altered mental status, unspecified; Z99.2 Dependence on renal dialysis; Z88.0 Allergy status to penicillin; I50.9 Heart failure, unspecified
CPT/HCPCS: 36415; 70450; 71045; 80053; 83735; 83880; 84100; 84484; 85007; 85025; 93005; 96361; 96374; 96376; 99285; J2310; J7040